=== PATIENT | female | born 1930 | race Caucasian/White ===

== ENCOUNTER → 2016-07-18 | Outpatient (REF) | payer MEDICARE | LOC: M LAB REF 12:57 | PROVIDERS: ATTEND Nurse Practitioner Adult Health | DX: R56.9 Unspecified convulsions (principal) ==

== ENCOUNTER → 2016-08-22 | Outpatient (REF) | payer MEDICARE | LOC: M LAB REF 16:14 | PROVIDERS: ATTEND Nurse Practitioner Adult Health | DX: G60.9 Hereditary and idiopathic neuropathy, unspecified (principal) ==

== ENCOUNTER → 2017-03-22 | Outpatient (CLI) | payer MEDICARE ==
[2017-03-22 13:06] LABS: BLOOD UREA NITROGEN 19 MG/DL (7-18); CREATININE FOR GFR 0.76 MG/DL (0.55-1.02); GLOMERULAR FILTRATION RATE > 60.0 (>32)
--- NOTE | 2017-03-22 14:05 | REP ---
MR BRAIN WITHOUT AND WITH CONTRAST: HISTORY: Hearing loss. CONTRAST: ProHance 12 mL. Areas of increased signal intensity on T2-weighted images are present in the periventricular and subcortical white matter and theresa. This represents small vessel ischemic disease. There is no intraparenchymal hemorrhage, infarct mass or midline shift. There is no abnormal enhancement. The ventricular system and cortical sulci as well as subarachnoid space in the posterior fossa are dilated consistent with mild volume loss. There is no extracerebral collection. There is no cerebellopontine angle mass. The inner ear structures are normal in appearance. The mastoid air cells and sinuses are clear. IMPRESSION: 1. Small vessel ischemic disease. 2. Mild volume loss. Signed by Reid Guerrero MD 03/22/2017 02:07 P
== END ==
LOC: M RAD 12:02
PROVIDERS: ATTEND Otolaryngology
DX: H90.3 Sensorineural hearing loss, bilateral (principal)
CPT/HCPCS: 36415; 70553; 82565; 84520; A9576

== ENCOUNTER → 2017-04-17 | Outpatient (REF) | payer MEDICARE | LOC: M LAB REF 12:30 | PROVIDERS: ATTEND Nurse Practitioner Adult Health | DX: F44.5 Conversion disorder with seizures or convulsions (principal) ==

== ENCOUNTER → 2017-10-02 | Outpatient (REF) | payer MEDICARE ==
[2017-10-02 20:09] LABS: VITAMIN B12 LEVEL 753 PG/ML (247-911)
== END ==
LOC: M LAB REF 18:22
DX: G60.9 Hereditary and idiopathic neuropathy, unspecified (principal)
CPT/HCPCS: 82607

== ENCOUNTER → 2017-11-11 | Outpatient (REF) | payer MEDICARE ==
[2017-11-11 18:37] LABS: PTH INTACT 107.7 PG/ML (18.5-88.0)
== END ==
LOC: M LAB REF 17:44
DX: E83.52 Hypercalcemia (principal)
CPT/HCPCS: 83970

== ENCOUNTER → 2017-12-12 | Outpatient (CLI) | payer MEDICARE ==
[2017-12-19 08:57] LABS: LEVETIRACETAM (KEPPRA) 43.6 ug/mL (10.0-40.0)
== END ==
LOC: M LAB 09:43
DX: R56.9 Unspecified convulsions (principal)
CPT/HCPCS: 36415

== ENCOUNTER → 2018-01-06 | Outpatient (CLI) | payer MEDICARE ==
[2018-01-08 15:25] LABS: LEVETIRACETAM (KEPPRA) 22.4 ug/mL (10.0-40.0)
== END ==
LOC: M LAB 11:32
DX: R56.9 Unspecified convulsions (principal)
CPT/HCPCS: 36415

== ENCOUNTER → 2018-09-16 | Outpatient (REF) | payer MEDICARE | LOC: M LABNEURO 10:03 | PROVIDERS: ATTEND Physician Assistant Medical | DX: G40.909 Epilepsy, unspecified, not intractable, without status epilepticus (principal) ==

== ENCOUNTER → 2020-01-05 | Outpatient (REF) | payer MEDICARE ==
[2020-02-11 09:53] LABS: ANTINUCLEAR ANTIBODIES DIRECT See Separate Report
[2020-02-17 08:19] LABS: RHEUMATOID FACTOR QUANT < 10.0 IU/ML (<15.0)
== END ==
LOC: M LAB REF 16:22
PROVIDERS: ATTEND Physician Assistant Medical
DX: G60.9 Hereditary and idiopathic neuropathy, unspecified (principal); R41.3 Other amnesia; R56.9 Unspecified convulsions

== ENCOUNTER → 2020-03-03 | Outpatient (CLI) | payer MEDICARE | LOC: M LAB 15:48 | PROVIDERS: ATTEND Physician Assistant Medical | DX: R56.9 Unspecified convulsions (principal) ==

== ENCOUNTER → 2020-08-31 | Outpatient (REF) | payer MEDICARE | LOC: M LAB REF 12:12 | PROVIDERS: ATTEND Nurse Practitioner Adult Health | DX: R56.9 Unspecified convulsions (principal) ==

== ENCOUNTER → 2021-04-07 | Outpatient (REF) | payer MEDICARE | LOC: M LAB REF 16:21 | PROVIDERS: ATTEND Nurse Practitioner Adult Health | DX: Z11.1 Encounter for screening for respiratory tuberculosis (principal) ==